=== PATIENT | female | born 1950 ===

== ENCOUNTER 2025-09-08 06:28 | Day surgery (SDC) | payer MEDICARE, SELFPAY ==
[2025-09-07 10:11] VITALS: BMI 25.2
[2025-09-08 10:42] VITALS: BMI 25.2
[2025-09-08] MEDS: NORMOSOL-R/PLASMALYTE-A 1000 IV (11:02)
[2025-09-08 11:10] VITALS: BMI 25.2
[2025-09-08] MEDS: CELEBREX 200 MG PO (11:18)
[2025-09-08] MEDS: TYLENOL 1000 MG PO (11:19)
--- NOTE | 2025-09-08 11:39 | PTCARENOTE ---
Patient has allergy to PCN, tongue swelling. Patient states that she did have allergy testing done and it was determined that patient was not allergic to cephalosporins. Anesthesia made aware and orders to give Ancef.
--- NOTE | 2025-09-08 11:46 | PTCARENOTE ---
Patent has joie wrap to the L arm. Wipe ordered by . Orders to leave the joie wrap on per Dr. Oleary and the arm will be wiped in the OR. Will monitor patient.
[2025-09-08 15:25] VITALS: BP 111/69
[2025-09-08 15:40] VITALS: BP 110/68
[2025-09-08 15:55] VITALS: BP 106/65; BP 106/68
[2025-09-08 16:15] VITALS: BP 119/56
[2025-09-08 16:40] VITALS: BP 132/65
== END 2025-09-08 16:51 | disposition home or self-care (01) ==
LOC: SDS 06:28
PROVIDERS: ATTENDING PHYSICIAN Orthopaedic Surgery; FAMILY PHYSICIAN Internal Medicine
DX: S52.572A Other intraarticular fracture of lower end of left radius, initial encounter for closed fracture (principal); X58.XXXA Exposure to other specified factors, initial encounter
CPT/HCPCS: 25609; C1713